=== PATIENT | female | born 1960 | race Caucasian/White ===

== ENCOUNTER 2024-08-16 03:18 | Day surgery (SDC) | payer MEDICARE ==
[~2024-08-16 03:18] MED LIST: Buspirone HCl30 MG PO; Estradiol0.5 MG PO; IRON150C PO; LORA1 PO; Lamictal200 MG PO; METPHE10 PO; PRIM50 PO; PROG100 PO; Pristiq100 MG PO; ZOLP10 PO
[2024-08-16] MEDS ORDERED: Lidocaine HCl 4% Cream 5 GM ONE (13:13)
== END 2024-08-16 23:00 | disposition home or self-care (01) ==
LOC: WOUND 03:18
DX: L97.419 Non-pressure chronic ulcer of right heel and midfoot with unspecified severity (principal); G62.9 Polyneuropathy, unspecified; E03.9 Hypothyroidism, unspecified; Z88.0 Allergy status to penicillin
CPT/HCPCS: A9270; G0463

== ENCOUNTER 2024-09-17 18:09 | Observation (INO) | payer MEDICARE ==
[~2024-09-17] VITALS: Ht 167.6 cm; Wt 144.0 kg
[2024-09-17 18:56] LABS: BASOPHILS ABSOLUTE AUTO 0.04 K/mm3 (0.00-0.23); BASOPHILS PERCENT AUTO 0 % (0-2); EOSINOPHILS ABSOLUTE AUTO 0.12 K/mm3 (0.00-0.68); EOSINOPHILS PERCENT AUTO 1 % (0-6); Hematocrit 45.4 % (33.0-51.0); Hemoglobin 15.3 g/dL (11.5-16.0); IMMATURE GRAN ABSOLUTE AUTO 0.02 K/mm3 (0.00-0.10); IMMATURE GRAN PERCENT AUTO 0 % (0-1); LYMPHOCYTES ABSOLUTE AUTO 1.98 K/mm3 (0.84-5.20); LYMPHOCYTES PERCENT AUTO 21 % (21-46); MONOCYTES ABSOLUTE AUTO 0.72 K/mm3 (0.16-1.47); MONOCYTES PERCENT AUTO 8 % (4-13); Mean Corpuscular HGB 29.3 pg (26.0-34.0); Mean Corpuscular HGB Conc 33.7 g/dL (31.5-36.5); Mean Corpuscular Volume 87 fL (80-100); Mean Platelet Volume 9.2 fL (9.1-12.4); NEUTROPHILS ABSOLUTE AUTO 6.36 K/mm3 (1.96-9.15); NEUTROPHILS PERCENT AUTO 69 % (41-73); Platelet Count 269 K/mm3 (150-400); RDW Coefficient Variation 12.7 % (11.7-14.2); RDW Standard Deviation 40.5 fL (35.1-46.3); Red Blood Cell Count 5.22 M/mm3 (3.80-5.20); White Blood Cell Count 9.24 K/mm3 (4.00-11.30)
[2024-09-17 18:59] LABS: Albumin, Blood 3.2 g/dL (3.4-5.0); Albumin/Globulin Ratio 0.8 (0.8-1.8); Bilirubin, Total 0.4 mg/dL (0.1-1.0); Bun/Creatinine Ratio 10.5 (12.0-20.0); Calcium, Blood 9.4 mg/dL (8.5-10.1); Creatinine, Blood 1.05 mg/dL (0.40-1.00); Globulin, Blood 3.9 g/dL (2.2-4.0); Potassium, Blood 4.6 mmol/L (3.5-5.5); Total Protein, Blood 7.1 g/dL (6.4-8.2)
[2024-09-17 21:30] LABS: Influenza A, PCR NEGATIVE (NEGATIVE); Influenza B, PCR NEGATIVE (NEGATIVE); Resp Syncytial Virus, PCR NEGATIVE (NEGATIVE); SARS-Cov-2 (COVID-19) PCR, MMC NEGATIVE (NEGATIVE)
[2024-09-17 22:18] LABS: Source, Urine Clean Catch
[2024-09-17 22:24] LABS: Appearance, Urine Hazy (Clear); Bilirubin, Urine Neg (Neg); Blood, Urine 1+ (Neg); Color, Urine Yellow (P-Yellow); Glucose Qualitative, Urine Neg (Neg); Ketones, Urine Neg (Neg); Leukocyte Esterase, Urine 3+ (Neg); Nitrite, Urine Neg (Neg); Protein, Urine 1+ (Neg); Urobilinogen, Urine NORM (Normal)
[2024-09-17 22:31] LABS: Bacteria Many /hpf; Mucus Light (0-Heavy); Red Blood Cells, Urine 0-2 /hpf (0-2); Squamous Epithelial Cells Rare /hpf (Few); Transitional Epithelial Cells Few /hpf (0-Rare); White Blood Cells, Urine TNTC /hpf (0-5)
[2024-09-17] MEDS ORDERED: CefTRIAXone Sodium 1,000 MG in NS 100 ML IV ONE (22:50)
[2024-09-18] MEDS ORDERED: HYDROmorphone HCl 2 MG Tab PO PRN (02:35)
[2024-09-18] MEDS ORDERED: Nitrofurantoin/Nitrofuran Mac 100 MG Cap PO SCH (10:00)
[2024-09-18] MEDS ORDERED: Cyclobenzaprine5 MG PO (10:04)
[2024-09-18] MEDS ORDERED: FAMO20 PO (10:05)
[2024-09-18] MEDS ORDERED: ALPRAZOLAM110 PO (10:05)
[2024-09-18] MEDS ORDERED: PREG200 PO (10:06)
[2024-09-18] MEDS ORDERED: Amphetamine Sal20 MG PO (10:06)
[2024-09-18] MEDS ORDERED: HYDMOR4 PO (10:06)
[2024-09-18] MEDS ORDERED: ATORVASTATIN CA20 MG PO (10:07)
[2024-09-18] MEDS ORDERED: Oxybutynin Chlo10 MG PO (10:08)
[2024-09-18] MEDS ORDERED: Prilosec Otc20 MG PO (10:08)
[2024-09-18] MEDS ORDERED: Hydroxyzine HCl25 MG (10:10)
[2024-09-18] MEDS ORDERED: MONT10T PO (10:10)
[2024-09-18] MEDS ORDERED: KETO15TC TOP (10:12)
[2024-09-18] MEDS ORDERED: ALDACTONE100 MG PO (10:13)
[2024-09-18] MEDS ORDERED: ZIPRASIDONE HCL PO (10:13)
[2024-09-18] MEDS ORDERED: Synthroid/Levo0.2 MG (10:13)
[2024-09-18] MEDS ORDERED: Cetirizine HCl10 MG PO (10:14)
[2024-09-18] MEDS ORDERED: Amphet Asp/Amphet/D-Amphet 15 MG CapCR PO SCH (10:40)
[2024-09-18] MEDS ORDERED: BusPIRone HCl 5 MG Tab PO SCH (10:40)
[2024-09-18] MEDS ORDERED: Spironolactone 50 MG Tab PO SCH (10:40)
[2024-09-18] MEDS ORDERED: Amphet Asp/Amphet/D-Amphet 10 MG CapCR PO SCH (11:12)
[2024-09-18] MEDS ORDERED: Cyclobenzaprine HCl 10 MG Tab PO SCH (14:00)
[2024-09-18] MEDS ORDERED: FLU VACC TS2024-25(6MOS UP)/PF 45 MCG/0.5 ML SYRINGE IM SCH (16:25)
[2024-09-18] MEDS ORDERED: Famotidine 20 MG Tab PO SCH (21:00)
[2024-09-18] MEDS ORDERED: Ziprasidone HCL 20 MG Cap PO SCH (21:00)
[2024-09-18] MEDS ORDERED: HyDROXyzine HCl 25 MG Tab PO PRN (21:00)
[2024-09-18] MEDS ORDERED: Montelukast Sodium 10 MG Tab PO SCH (21:00)
[2024-09-18] MEDS ORDERED: Primidone 50 MG Tab PO SCH (21:00)
[2024-09-18] MEDS ORDERED: Atorvastatin 10 MG Tab PO SCH (21:00)
[2024-09-18] MEDS ORDERED: Pregabalin 75 MG Cap PO SCH (21:00)
[2024-09-18] MEDS ORDERED: ALPRAZolam 1 MG Tab PO PRN (21:00)
[2024-09-18] MEDS ORDERED: CefTRIAXone Sodium 1,000 MG in NS 100 ML IV SCH (21:00)
[2024-09-18 22:09] VITALS: BP 113/91
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
[2024-09-19 04:31] VITALS: BP 117/72
[2024-09-19] MEDS ORDERED: Levothyroxine Sodium 0.1 MG Tab PO SCH (06:00)
[2024-09-19] MEDS ORDERED: Omeprazole 20 MG CapCR PO SCH (06:00)
--- NOTE | 2024-09-19 06:36 | NUR ---
PT HAS BEEN AWAKE ALL NIGHT ON HER PHONE.PT STATES THAT SHE TAKES XANAX AT NIGHT TO SLEEP.PT SAYS THAT SHE DID NOT ASK FOR THE MEDICINE BECAUSE SHE DIDNT THINK THAT IT WAS ORDERED.INFORMED PT THAT ITS ORDERED PRN.PT STATES THAT SHE WILL FOR THE MED TONIGHT.VSS,DENIES PAIN,DENIES NEEDS.CALL LIGHT AND PT'S ITEMS WITHIN REACH.WILL REPORT TO INCOMING NURSE
[2024-09-19 07:50] VITALS: BP 91/78
[2024-09-19 08:49] LABS: BASOPHILS ABSOLUTE AUTO 0.04 K/mm3 (0.00-0.23); BASOPHILS PERCENT AUTO 1 % (0-2); EOSINOPHILS ABSOLUTE AUTO 0.21 K/mm3 (0.00-0.68); EOSINOPHILS PERCENT AUTO 3 % (0-6); Hematocrit 42.7 % (33.0-51.0); Hemoglobin 14.4 g/dL (11.5-16.0); IMMATURE GRAN ABSOLUTE AUTO 0.02 K/mm3 (0.00-0.10); IMMATURE GRAN PERCENT AUTO 0 % (0-1); LYMPHOCYTES ABSOLUTE AUTO 3.28 K/mm3 (0.84-5.20); LYMPHOCYTES PERCENT AUTO 39 % (21-46); MONOCYTES PERCENT AUTO 8 % (4-13); Mean Corpuscular HGB Conc 33.7 g/dL (31.5-36.5); Mean Corpuscular Volume 86 fL (80-100); Mean Platelet Volume 9.2 fL (9.1-12.4); NEUTROPHILS ABSOLUTE AUTO 4.09 K/mm3 (1.96-9.15); NEUTROPHILS PERCENT AUTO 49 % (41-73); Platelet Count 267 K/mm3 (150-400); RDW Coefficient Variation 12.7 % (11.7-14.2); RDW Standard Deviation 39.8 fL (35.1-46.3); Red Blood Cell Count 4.96 M/mm3 (3.80-5.20); White Blood Cell Count 8.34 K/mm3 (4.00-11.30)
[2024-09-19] MEDS ORDERED: Pregabalin 50 MG Capsule PO SCH (09:00)
[2024-09-19] MEDS ORDERED: Venlafaxine HCl 75 MG CapCR PO SCH (09:00)
[2024-09-19] MEDS ORDERED: Loratadine 10 MG Tab PO SCH (09:00)
[2024-09-19] MEDS ORDERED: Ketoconazole 2% Cream 15 GM TOP SCH (09:00)
[2024-09-19] MEDS ORDERED: Enoxaparin 40 MG/0.4 ML SYR SC SCH (09:00)
[2024-09-19 09:12] LABS: Bun/Creatinine Ratio 11.8 (12.0-20.0); Creatinine, Blood 0.76 mg/dL (0.40-1.00); Potassium, Blood 3.8 mmol/L (3.5-5.5)
--- NOTE | 2024-09-19 14:56 | NUR ---
PHYSICIAN CONTACT CALLED DR WHITNEY REGARDING BLADDER SCAN OF 999+ AND PATIENT COMPLAINTS OF PAIN AND UNABLE TO URINATE. OKAYED FOR INDWELLING ESQUIVEL. ESQUIVEL PLACED UNDER STERILE PROCEDURE, DRAINING TO GRAVITY YELLOW URINE.
[2024-09-19 15:30] VITALS: BP 150/83
--- NOTE | 2024-09-19 17:24 | NUR ---
SHIFT SUMMARY PATIENT ABLE TO PARTICIPATE WITH PHYSICAL THERAPY THIS SHIFT. TOLERATED ESQUIVEL BEING PLACED WELL. A/OX4. WOUNDS TO FEET OPEN TO AIR, WHITE WOUND BEDS. MEPILEX TO LEFT KNEE CDI. ASSISTED WITH PERICARE SEVERAL TIMES THIS SHIFT. EATING WELL, TOLERATING IV ABX WELL. RECEIVING DILAUDED FOR PAIN CONTROL 5/10 AVERAGE RATING. ABLE TO MAKE NEEDS KNOWN. CALL LIGHT IN REACH, CARES ONGOING.
[2024-09-19] MEDS ORDERED: NS 250 ML IV PRN (20:00)
[2024-09-19 20:17] VITALS: BP 112/78
--- NOTE | 2024-09-20 04:38 | NUR ---
SHIFT SUMMARY: PT AOX4 AND CALLS APPROPRIATELY. PT COMPLAINED OF PAIN, DILAUDID PO GIVEN WITH EVENING MEDS. PT STATES THAT THEY TAKE THE DILAUDID WITH THEIR FLEXARIL AND XANAX AT HOME. PT ENDORSED NOT BEING ABLE TO SLEEP THE LAST COUPLE DAYS. WAS ABLE TO SLEEP FOR A FEW HOURS THIS NIGHT. WHILE DOING MYNOR CARE, PTS LIPS WERE DUSKY AND SATTING IN 90'S PT WAS AWAKE BUT DROWSY AND ABLE TO ANSWER QUESTIONS APPROPRIATELY. STATES SHE IS NORMALLY SUPPOSED TO WEAR CPAP AT HOME BUT DOESNT. PLACED ON 1L OF OXYGEN NC AND COLOR RETURNED AND SATS BACK TO 96. NO FURTHER COMPLAINTS. PT RESTING IN BED, BED IN LOWEST POSITION, CALL LIGHT IN REACH. CONTINUING CARE.
[2024-09-20 04:57] VITALS: BP 123/69
[2024-09-20 07:50] VITALS: BP 121/69
[2024-09-20] MEDS ORDERED: Lubiprostone 24 MCG Cap PO SCH (12:00)
[2024-09-20] MEDS ORDERED: Aspirin 81 MG Chew PO SCH (12:00)
--- NOTE | 2024-09-20 16:19 | NUR ---
NO CHANGES IN PT STATUS. PT HAD C/O [AIN THROUGH THE SHIFT. SEE EMAR FOR DETAILS ON NV MEDICATION GIVE PER MD ORDERS. PT HAS NO QUESTIONS OR CONCERNS AT THIS TIME.
[2024-09-20 17:05] VITALS: BP 111/63
[2024-09-20 19:48] VITALS: BP 135/67
[2024-09-20] MEDS ORDERED: buPROPion HCL 150 MG TAB.SR.12H PO SCH (21:00)
[2024-09-21 04:34] VITALS: BP 133/72
--- NOTE | 2024-09-21 04:58 | NUR ---
SHIFT SUMMARY: PT AOX4 COMPLAINED OF SOME PAIN MEDICATED PER EMR. TOLERATING PO MEDS WELL NO COMPLAINTS OF DISCOMFORT THROUGH THE NIGHT. WAS ABLE TO SLEEP WELL THROUGH MOST OF THE NIGHT. HAD A LOT OF OUTPUT VIA ESQUIVEL >2000ML. DRESSINGS ARE CLEAN DRY AND INTACT. PT VERY PLEASANT AND EXCITED TO WORKING TOWARDS GETTING BETTER. PT RESTING IN BED, BED IN LOWEST POSITION, CALL LIGHT IN REACH. CONTINUING CARE.
[2024-09-21 09:08] VITALS: BP 137/83
[2024-09-21 16:13] VITALS: BP 99/67
--- NOTE | 2024-09-21 17:23 | NUR ---
NO CHNGES I PT STATUS. PT HAD C/O PAIN SEE EMAR FOR DETAILS.
[2024-09-21 19:29] VITALS: BP 113/79
[2024-09-21] MEDS ORDERED: ALPRAZolam 0.5 MG Tab PO PRN (21:00)
[2024-09-22 03:59] VITALS: BP 99/60
--- NOTE | 2024-09-22 06:08 | NUR ---
SHIFT SUMMARY: PT AOX4 FLAT AFFECT BUT VERY PLEASANT. PT TOLERATING MEDICATION WELL AND WAS ABLE TO TRANSFER FROM CHAIR TO BED WITH 1PA/ SBA. ESQUIVEL HAD GOOD OUTPUT THROUGH THE NIGHT. PT WAS ABLE TO SLEEP PRETTY WELL THROUGH THE NIGHT WITH MINIMAL DISTURBANCES. NO ACUTE EVENTS OVERNIGHT. PT RESTING IN BED, BED IN LOWEST POSITION, CALL LIGHT IN REACH. CONTINUING CARE.
[2024-09-22 07:25] VITALS: BP 112/72
[2024-09-22] MEDS ORDERED: Psyllium 1 EA Pack PO SCH (11:35)
[2024-09-22] MEDS ORDERED: Polyethylene Glycol 3350 17 gm PO SCH (11:35)
[2024-09-22 15:43] VITALS: BP 106/71
--- NOTE | 2024-09-22 16:38 | NUR ---
SHIFT SUMMARY MS LAU DESCRIBES GENERAL PAIN LEVEL 6/10 WHICH SHE SAID IS ABOUT BASELINE. SHE SAID SHE HAS NOT HAD A BM X 1 WEEK. STARTED ON METAMUCIL AND MIRILAX PER VO DR PEREZ. DRINKING PO FLUIDS WELL AND SHE HAS AMBULATED IN THE HALLS WITH PHYSICAL THERAPY. ESQUIVEL CATHETER CLAMPED FOR 5 HOURS AND REMOVED AT 1545HRS. FAMILY AT BEDSIDE. AWAITING S.N.F. PLACEMENT. UP IN CHAIR FOR MUCH OF THE DAY, RESTING IN BED NOW, BED LOW, CALL LIGHT IN REACH.
[2024-09-22 19:37] VITALS: BP 113/67
[2024-09-22] MEDS ORDERED: Arginine/Glutamine/Calcium Hmb 1 Packet PO SCH (21:00)
[2024-09-23 04:25] VITALS: BP 99/64
--- NOTE | 2024-09-23 04:52 | NUR ---
SHIFT SUMMARY; PATIENT SLEPT IN LONG INTERVALS. GIVEN PRN XANAX. SHE DECLINED THE ATARAX, SAID IT DOES NOT WORK FOR HER. VSS. VOIDING WELL SINCE SIERRA STYLES. PLEASANT TO WORK WITH AND CALLS FOR HELP TO
[2024-09-23 07:04] VITALS: BP 113/56
[2024-09-23] MEDS ORDERED: Magnesium Hydroxide Conc 10 ML UDC PO ONE (11:55)
[2024-09-23] MEDS ORDERED: AMITIZA24 MC1 PO (13:22)
[2024-09-23] MEDS ORDERED: ASPI81CH PO (13:22)
[2024-09-23] MEDS ORDERED: JUVEN PACKET1 EAC3 PO (13:22)
[2024-09-23] MEDS ORDERED: NITR100CA PO (13:23)
[2024-09-23] MEDS ORDERED: MIRALAX1714 PO (13:24)
[2024-09-23] MEDS ORDERED: Primidone50 MG PO (13:25)
[2024-09-23] MEDS ORDERED: Budeprion Xl300 MG PO (13:32)
[2024-09-23] MEDS ORDERED: ALPR1 PO (13:34)
[2024-09-23] MEDS ORDERED: OMEP20ER PO (14:01)
--- NOTE | 2024-09-23 14:19 | NUR ---
DISCHARGE NOTE MS LAU WAS TRANSFERED TO [facility]. MEDICAL TRANSFER TOOK HER IN A WHEELCHAIR AT 1423HRS. REPORT CALLED TO ACCEPTING NURSE JENNY. MS LAU IS OX4, PAIN STABLE BETWEEN 6 AND 7/10 CONTROLLED ON MEDICATION REGIME. MS LAU HAS BEEN UP WALKING TO THE BATHROOM WITH GAITBELT/WALKER AND STAND BY ASSISTANCE. SHE HAS BEEN URINATING WELL AND PASSING FLATUS BUT NO BOWEL MOVEMENT FOR 8 DAYS PER PT REPORT. MEDICATED WITH BOWEL CARE REGIME. MS LAU DENIED ANY NEW CONCERNS OR QUESTIONS PRIOR TO TRANSFER.
[2024-09-24] MEDS ORDERED: Magnesium Hydroxide Conc 10 ML UDC PO PRN
== END 2024-09-23 14:25 ==
LOC: ER 18:09 → ERHOLD 18:10 → MEDS 18:10
PROVIDERS: Student in an Organized Health Care Education/Training Program; ADMIT Internal Medicine
DX: R53.1 Weakness (principal); W19.XXXA Unspecified fall, initial encounter; N39.0 Urinary tract infection, site not specified; B95.2 Enterococcus as the cause of diseases classified elsewhere; R33.9 Retention of urine, unspecified; E03.9 Hypothyroidism, unspecified; I89.0 Lymphedema, not elsewhere classified; K21.9 Gastro-esophageal reflux disease without esophagitis; F90.9 Attention-deficit hyperactivity disorder, unspecified type; F31.9 Bipolar disorder, unspecified; G25.0 Essential tremor; M79.7 Fibromyalgia; K59.03 Drug induced constipation; M17.0 Bilateral primary osteoarthritis of knee; L97.419 Non-pressure chronic ulcer of right heel and midfoot with unspecified severity; G50.0 Trigeminal neuralgia; Z79.890 Hormone replacement therapy; Z79.899 Other long term (current) drug therapy; E78.5 Hyperlipidemia, unspecified; Z88.0 Allergy status to penicillin; Z88.5 Allergy status to narcotic agent; Z88.8 Allergy status to other drugs, medicaments and biological substances; Z86.73 Personal history of transient ischemic attack (TIA), and cerebral infarction without residual deficits; Z90.49 Acquired absence of other specified parts of digestive tract
CPT/HCPCS: 0241U; 36415; 51701; 51798; 73620; 80048; 80053; 81001; 85025; 87077; 87086; 87186; 96365; 96366; 96372; 97110; 97116; 97161; 97166; 97530; 97535; 99285-25; A9270; G0378; J0696; J1650; J7050; P9612

== ENCOUNTER 2025-02-04 15:00 | Inpatient (IN) | payer MEDICARE ==
[~2025-02-04] VITALS: Ht 167.6 cm; Wt 137.8 kg
[~2025-02-04 15:00] MED LIST changes: +ALDACTONE100 MG PO; +ALPR1 PO; +ALPRAZOLAM110 PO; +AMITIZA24 MC1 PO; +ASPI81CH PO; +ATORVASTATIN CA20 MG PO; +Amphetamine Sal20 MG PO; +Budeprion Xl300 MG PO; +Cetirizine HCl10 MG PO; +Cyclobenzaprine5 MG PO; +FAMO20 PO; +HYDMOR4 PO; +Hydroxyzine HCl25 MG; +JUVEN PACKET1 EAC3 PO; +KETO15TC TOP; +MIRALAX1714 PO; +MONT10T PO; +NITR100CA PO; +OMEP20ER PO; +Oxybutynin Chlo10 MG PO; +PREG300 PO; +Prilosec Otc20 MG PO; +Primidone50 MG PO; +Synthroid/Levo0.2 MG PO; +ZIPRASIDONE HCL PO
[2025-02-04 15:47] LABS: BASOPHILS ABSOLUTE AUTO 0.05 K/mm3 (0.00-0.23); BASOPHILS PERCENT AUTO 1 % (0-2); EOSINOPHILS ABSOLUTE AUTO 0.11 K/mm3 (0.00-0.68); EOSINOPHILS PERCENT AUTO 1 % (0-6); Hematocrit 47.4 % (33.0-51.0); Hemoglobin 16.2 g/dL (11.5-16.0); IMMATURE GRAN ABSOLUTE AUTO 0.04 K/mm3 (0.00-0.10); IMMATURE GRAN PERCENT AUTO 0 % (0-1); LYMPHOCYTES PERCENT AUTO 33 % (21-46); MONOCYTES ABSOLUTE AUTO 0.69 K/mm3 (0.16-1.47); MONOCYTES PERCENT AUTO 6 % (4-13); Mean Corpuscular HGB 29.8 pg (26.0-34.0); Mean Corpuscular HGB Conc 34.2 g/dL (31.5-36.5); Mean Corpuscular Volume 87 fL (80-100); Mean Platelet Volume 8.7 fL (9.1-12.4); NEUTROPHILS ABSOLUTE AUTO 6.32 K/mm3 (1.96-9.15); NEUTROPHILS PERCENT AUTO 58 % (41-73); Platelet Count 331 K/mm3 (150-400); RDW Coefficient Variation 12.5 % (11.7-14.2); RDW Standard Deviation 39.7 fL (35.1-46.3); Red Blood Cell Count 5.43 M/mm3 (3.80-5.20); White Blood Cell Count 10.81 K/mm3 (4.00-11.30)
[2025-02-04 16:13] LABS: Albumin, Blood 3.7 g/dL (3.4-5.0); Albumin/Globulin Ratio 0.9 (0.8-1.8); Bilirubin, Total 0.8 mg/dL (0.1-1.0); Bun/Creatinine Ratio 13.9 (12.0-20.0); Calcium, Blood 9.7 mg/dL (8.5-10.1); Creatinine, Blood 0.94 mg/dL (0.40-1.00); Globulin, Blood 3.9 g/dL (2.2-4.0); Potassium, Blood 4.5 mmol/L (3.5-5.5); Total Protein, Blood 7.6 g/dL (6.4-8.2)
[2025-02-04] MEDS ORDERED: Vancomycin HCL 1,750 MG in NS 500 ML IV ONE (18:55)
[2025-02-04] MEDS ORDERED: Ondansetron 4 MG TAB PO PRN (20:05)
[2025-02-04] MEDS ORDERED: HYDROmorphone HCl 4 MG Tab PO PRN (20:10)
[2025-02-04] MEDS ORDERED: Montelukast Sodium 10 MG Tab PO SCH (21:00)
[2025-02-04] MEDS ORDERED: Ziprasidone HCL 20 MG Cap PO SCH (21:00)
[2025-02-04] MEDS ORDERED: ALPRAZolam 1 MG Tab PO SCH (21:00)
[2025-02-04] MEDS ORDERED: Cyclobenzaprine HCl 10 MG Tab PO SCH (21:00)
[2025-02-04] MEDS ORDERED: Atorvastatin 10 MG Tab PO SCH (21:00)
[2025-02-04] MEDS ORDERED: Lactobacil 2-S.Thermo-Bifido 1 1 Cap PO SCH (21:00)
[2025-02-04] MEDS ORDERED: BusPIRone HCl 10 MG Tab PO SCH (21:00)
[2025-02-04] MEDS ORDERED: Pregabalin 50 MG Capsule PO SCH (21:00)
[2025-02-04] MEDS ORDERED: NS 1,000 ML IV SCH (21:00)
[2025-02-04] MEDS ORDERED: buPROPion HCL 150 MG TAB.SR.12H PO SCH (21:00)
[2025-02-04] MEDS ORDERED: Famotidine 20 MG Tab PO SCH (21:00)
[2025-02-04] MEDS ORDERED: Primidone 50 MG Tab PO SCH (21:00)
[2025-02-04] MEDS ORDERED: ALPRAZolam 1 MG Tab PO PRN (21:20)
[2025-02-04] MEDS ORDERED: Pregabalin 75 MG Cap PO SCH (22:00)
[2025-02-04 22:29] VITALS: BP 126/81
[2025-02-04] MEDS ORDERED: NS 1,000 ML IV ONE (23:26)
[2025-02-05] MEDS ORDERED: ALPRAZolam 1 MG Tab PO PRN (01:15)
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
[2025-02-05 04:39] VITALS: BP 101/84
[2025-02-05] MEDS ORDERED: Levothyroxine Sodium 0.1 MG Tab PO SCH (06:00)
[2025-02-05] MEDS ORDERED: Omeprazole 20 MG CapCR PO SCH (06:00)
[2025-02-05] MEDS ORDERED: Vancomycin HCL 1,250 MG in NS 250 ML IV SCH (06:00)
[2025-02-05 06:22] LABS: BASOPHILS ABSOLUTE AUTO 0.04 K/mm3 (0.00-0.23); BASOPHILS PERCENT AUTO 0 % (0-2); EOSINOPHILS ABSOLUTE AUTO 0.17 K/mm3 (0.00-0.68); EOSINOPHILS PERCENT AUTO 2 % (0-6); Hemoglobin 13.8 g/dL (11.5-16.0); IMMATURE GRAN ABSOLUTE AUTO 0.03 K/mm3 (0.00-0.10); IMMATURE GRAN PERCENT AUTO 0 % (0-1); LYMPHOCYTES ABSOLUTE AUTO 3.53 K/mm3 (0.84-5.20); LYMPHOCYTES PERCENT AUTO 36 % (21-46); MONOCYTES ABSOLUTE AUTO 1.42 K/mm3 (0.16-1.47); MONOCYTES PERCENT AUTO 14 % (4-13); Mean Corpuscular HGB 29.2 pg (26.0-34.0); Mean Corpuscular HGB Conc 32.1 g/dL (31.5-36.5); Mean Corpuscular Volume 91 fL (80-100); NEUTROPHILS ABSOLUTE AUTO 4.66 K/mm3 (1.96-9.15); NEUTROPHILS PERCENT AUTO 47 % (41-73); Platelet Count 237 K/mm3 (150-400); RDW Coefficient Variation 12.5 % (11.7-14.2); RDW Standard Deviation 41.7 fL (35.1-46.3); Red Blood Cell Count 4.72 M/mm3 (3.80-5.20); White Blood Cell Count 9.85 K/mm3 (4.00-11.30)
[2025-02-05 06:45] LABS: Bun/Creatinine Ratio 13.5 (12.0-20.0); Calcium, Blood 8.8 mg/dL (8.5-10.1); Creatinine, Blood 0.89 mg/dL (0.40-1.00); Potassium, Blood 3.8 mmol/L (3.5-5.5)
[2025-02-05 07:41] VITALS: BP 106/71
[2025-02-05] MEDS ORDERED: Polyethylene Glycol 3350 17 gm PO SCH (09:00)
[2025-02-05] MEDS ORDERED: Ziprasidone HCL 20 MG Cap PO SCH (09:00)
[2025-02-05] MEDS ORDERED: Aspirin 81 MG Chew PO SCH (09:00)
[2025-02-05] MEDS ORDERED: Spironolactone 50 MG Tab PO SCH (09:00)
[2025-02-05] MEDS ORDERED: Enoxaparin 40 MG/0.4 ML SYR SC SCH (09:00)
[2025-02-05] MEDS ORDERED: Amphet Asp/Amphet/D-Amphet 5 MG Tab PO SCH ×2 (09:00→12:00)
[2025-02-05] MEDS ORDERED: Loratadine 10 MG Tab PO SCH (09:00)
[2025-02-05] MEDS ORDERED: Zolpidem Tartrate 5 MG Tab PO PRN (10:55)
[2025-02-05] MEDS ORDERED: NS 250 ML IV PRN (14:20)
[2025-02-05 15:25] VITALS: BP 108/75
--- NOTE | 2025-02-05 18:08 | NUR ---
SHIFT SUMMARY PT AOX4, COOPERATIVE, ABLE TO MAKE NEEDS KNOWN. PT IS SBA USING CANE TO BATHROOM TO VOID. WOUND CARE ORDERS PLACED OF PT FOOT. PODIATRY CONSULTED AND VISITED PT. PT INFORMED THIS RN NO PROCEDURE TO TAKE PLACE TOMORROW, GONNA BE HANDLED WITH OUTPATIENT IV ANTIBIOTICS AND CONSISTANT WOUND CARE. BED IN LOWST POSITION, CALL LIGHT WITHIN REACH.
[2025-02-05 19:39] VITALS: BP 106/65
[2025-02-06 02:13] VITALS: BP 112/74
--- NOTE | 2025-02-06 03:29 | NUR ---
PT WAS UP TO CHAIR DURING THE START OF SHIFT WITH 1 ASSIST AND CANE. WOUND CARE WAS COMPLETED DURING THIS SHIFT PER THE DOCTORDS ORDERS-XEROFORM, EXUDRY, KERLIX AND LEOBARDO WRAP.PT GIVEN DILUADID FOR HER COMPLAINT OF PAIN. PATIENT STATES SHE WAS UNABLE TO VOID. RN OBTAINED ORDER FOR BLADDER SCAN AND STRAIGHT CATH ONCE FOR RETENTION >300 mL. PATIENT WAS RETAINING 1442 mL AND WAS STRAIGHT CATH. PT STATED SHE IS FEELING MUCH BETTER. PT ABLE TO DEMOSTRATE THE PROPER USE OF CALL LIGHT AND ORIENTED TO OWN ABILITY. BED IS IN LOW POSITION AND WHEEL ARE LOCKED. CALL LIGHT IS WITHIN PATIENTS REACH.
[2025-02-06 04:28] VITALS: BP 113/75
[2025-02-06 05:47] LABS: BASOPHILS ABSOLUTE AUTO 0.03 K/mm3 (0.00-0.23); BASOPHILS PERCENT AUTO 0 % (0-2); EOSINOPHILS ABSOLUTE AUTO 0.09 K/mm3 (0.00-0.68); EOSINOPHILS PERCENT AUTO 1 % (0-6); Hematocrit 39.6 % (33.0-51.0); Hemoglobin 13.3 g/dL (11.5-16.0); IMMATURE GRAN ABSOLUTE AUTO 0.02 K/mm3 (0.00-0.10); IMMATURE GRAN PERCENT AUTO 0 % (0-1); LYMPHOCYTES ABSOLUTE AUTO 1.79 K/mm3 (0.84-5.20); LYMPHOCYTES PERCENT AUTO 20 % (21-46); MONOCYTES ABSOLUTE AUTO 0.64 K/mm3 (0.16-1.47); MONOCYTES PERCENT AUTO 7 % (4-13); Mean Corpuscular HGB Conc 33.6 g/dL (31.5-36.5); Mean Corpuscular Volume 89 fL (80-100); Mean Platelet Volume 9.4 fL (9.1-12.4); NEUTROPHILS ABSOLUTE AUTO 6.25 K/mm3 (1.96-9.15); NEUTROPHILS PERCENT AUTO 71 % (41-73); Platelet Count 238 K/mm3 (150-400); RDW Coefficient Variation 12.4 % (11.7-14.2); RDW Standard Deviation 40.7 fL (35.1-46.3); Red Blood Cell Count 4.44 M/mm3 (3.80-5.20); White Blood Cell Count 8.82 K/mm3 (4.00-11.30)
[2025-02-06 06:10] LABS: Anion Gap 3 mmol/L (3-11); Blood Urea Nitrogen 10 mg/dL (8-24); Bun/Creatinine Ratio 11.7 (12.0-20.0); CO2, Blood 28 mmol/L (21-32); Calcium, Blood 8.9 mg/dL (8.5-10.1); Chloride, Blood 107 mmol/L (98-108); Creatinine, Blood 0.86 mg/dL (0.40-1.00); Glomerular Filtration Rate 76 (60-); Glucose, Blood 132 mg/dL (70-99); Magnesium, Blood 2.1 mg/dL (1.6-2.4); Potassium, Blood 4.4 mmol/L (3.5-5.5); Sodium, Blood 134 mmol/L (136-145); Vancomycin, Trough 19.3 ug/mL (5.0-10.0)
[2025-02-06 07:27] VITALS: BP 110/77
[2025-02-06] MEDS ORDERED: Vancomycin HCL 750 MG in NS 250 ML IV ONE (08:45)
[2025-02-06 16:38] LABS: Source, Urine Clean Catch
[2025-02-06 16:44] LABS: Appearance, Urine Clear (Clear); Bilirubin, Urine Neg (Neg); Blood, Urine Neg (Neg); Glucose Qualitative, Urine Neg (Neg); Ketones, Urine Neg (Neg); Leukocyte Esterase, Urine Neg (Neg); Nitrite, Urine Neg (Neg); Protein, Urine Neg (Neg); Urobilinogen, Urine NORM (Normal)
--- NOTE | 2025-02-06 16:58 | NUR ---
SHIFT SUMMARY PT AOX4, COOPERATIVE, ABLE TO MAKE NEEDS KNOWN. PT IS 1 PERSON ASSIST TO COMMODE TO VOID. TOLERATING IV AND PO MEDICATIONS. PT IS RETAINING URINE A BIT, LAST URINE OUTPUT WAS OVER 1000CC, PT REPORTS HAVING TO CONCENTRATE AND STRAIN TO URINATE. PT TO WORK WITH PT. AWAITING UA RESULTS. DONT KNOWN WHEN DC WILL BE. FATHER (CAREGIVER) IS CURRENTLY AT THE COAST AND WILL BE UNTIL FRIDAY, PT DOES NOT HAVE RIDE HOME. CASE MANAGMENT MIGHT BE ABLE TO SET UP [facility]AXI RIDE HOME IF MD APPROVES DC TOMORROW. BED IN LOWEST POSITION, CALL LIGHT WITHIN REACH.
[2025-02-06 17:06] LABS: Color, Urine Pale Yellow (P-Yellow)
[2025-02-06 17:44] VITALS: BP 113/72
[2025-02-06 19:55] VITALS: BP 109/48
[2025-02-06] MEDS ORDERED: Miconazole Nitrate 2% 85 GM PWD TOP SCH (21:00)
[2025-02-06] MEDS ORDERED: Miconazole Nitrate 2% 43 GM PWD TOP SCH (21:00)
[2025-02-07 04:09] VITALS: BP 120/58
--- NOTE | 2025-02-07 04:22 | NUR ---
A&O X4,RECVD SITTING ON CHAIR RECLINER. VSS. WITH BOTH FEET NICELY DRESSED AND ELEVATED. WITH ONGOING INFECTION TX BUT ASYMPTOMATIC. STILL W/ STRAINING ON URINATION CONCERNS BUT ABLE TO VOID GOOD AMOUNT AT MIDNIGHT. ABLE TO TRANSFER SAFELY AND REPOSITION TO BED. BUT LEFT FOOT DRESSING GOT REMOVED ACCIDENTALLY ON TRANSFER. REDRESSED BOTH WOUND FEET ASEPTICALLY AT 1230AM. REQ FOR SLEEP PILL AND ABLE TO REST WELL AT NIGHT.
[2025-02-07 07:39] VITALS: BP 121/71
[2025-02-07] MEDS ORDERED: Vancomycin HCL 2,000 MG in NS 500 ML IV SCH (09:00)
[2025-02-07 09:52] LABS: Hematocrit 41.8 % (33.0-51.0); Hemoglobin 14.1 g/dL (11.5-16.0); Mean Corpuscular HGB 30.4 pg (26.0-34.0); Mean Corpuscular HGB Conc 33.7 g/dL (31.5-36.5); Mean Corpuscular Volume 90 fL (80-100); Mean Platelet Volume 9.2 fL (9.1-12.4); Platelet Count 257 K/mm3 (150-400); RDW Coefficient Variation 12.6 % (11.7-14.2); RDW Standard Deviation 41.2 fL (35.1-46.3); Red Blood Cell Count 4.64 M/mm3 (3.80-5.20)
[2025-02-07 10:06] LABS: Albumin, Blood 3.2 g/dL (3.4-5.0); Anion Gap 6 mmol/L (3-11); Blood Urea Nitrogen 10 mg/dL (8-24); Bun/Creatinine Ratio 11.7 (12.0-20.0); CO2, Blood 26 mmol/L (21-32); Calcium, Blood 9.1 mg/dL (8.5-10.1); Chloride, Blood 107 mmol/L (98-108); Creatinine, Blood 0.86 mg/dL (0.40-1.00); Glomerular Filtration Rate 76 (60-); Glucose, Blood 125 mg/dL (70-99); Magnesium, Blood 2.1 mg/dL (1.6-2.4); Phosphorus, Blood 2.9 mg/dL (2.5-4.9); Sodium, Blood 135 mmol/L (136-145)
[2025-02-07 15:52] VITALS: BP 107/72
--- NOTE | 2025-02-07 17:04 | NUR ---
SHIFT SUMMARY PT AOX4, COOPERATIVE, ABLE TO MAKE NEEDS KNOWN. PT IS 1 PERSON ASSIST TO RECLINER USING TOE TOUGH ON LEFT FOOT AND HEEL TOUCH ON RIGHT FOOT. TOLERATING IV AND PO MEDICATION. NEEDS PICC LINE FOR SNF ANTIBX, CHARGE ACCOUNTS AUDIT CLERK AWARE. PLACED ORDER FOR FLOMAX FOR EASE OF URINATING, SHOULD BE REFLECTED ON EMAR. BED IN LOWEST POSITION, CALL LIGHT WITHIN REACH.
[2025-02-07] MEDS ORDERED: Acetaminophen 325 MG TABLET PO PRN (17:15)
--- NOTE | 2025-02-07 20:16 | NUR ---
T- ORDER RECEIVED FROM THE ON-CALL HOSPITALIST DR. PARKS: TORADOL IV Q6 PRN. PER PT REPORT, HAS TAKEN THIS MEDICATION PRIOR, AND HAVEN'T HAD ANY ADVERSE REACTION TO IT. ENTERED TO [employer], SEE EMAR.
[2025-02-07] MEDS ORDERED: Ketorolac Tromethamine 30mg Vial IV PRN (20:20)
[2025-02-07 20:47] VITALS: BP 107/68
--- NOTE | 2025-02-08 02:56 | NUR ---
SHIFT SUMMARY NO ACUTE EVENTS DURING THIS SHIFT. PT ABLE TO VOID >1300MLS AT BS WITH 1-PERSON ASSIST AND FWW. PT REFUSED DRESSING CHANGES AT HS TO FEET. RIGHT FOOT LEOBARDO WRAP C/D/I, LEFT FOOT MEPILEX C/D/I. NEW ORDER OF TORADOL 30MG IV Q6PRN RECEIVED FROM THE ON-CALL HOSPITALIST. MEDICATED FOR C/O 05/11 MIGRANE AT HS. PT REPORTS EFFECTIVE 0. PT IS ON RA, O2 SAT'S>96%. HS PRN XANAX 1MG ADMINISTERED ORDERED. NO BM DURING THIS SHIFT; LAST BM REPORTED>3-4 DAYS AGO. PER EMAR, PT RESTARTING HOME MEDICATION MOVANTIC THIS MORNING. PER [employer] ORDERS, PICC IS ORDERED, FOR PLAN TO CONTINUE EIGHT WEEKS OF IV ABX'S. BED AT THE LOWEST POSITION, CALL LIGHT W/I REACH. PT IS ABLE TO MAKE HER NEEDS KNOWN, IS PLEASANT AND COOPERATIVE WITH CARE, A/OX4.
[2025-02-08 04:48] VITALS: BP 95/62
--- NOTE | 2025-02-08 06:17 | NUR ---
PER PT REPORT, MOVANTIC PO IS TAKEN TO AN EMPTY STOMACH QAM. PER EMAR THIS MEDICATION IS A ONE-TIME DOSE AND WAS SCHEDULED AT 0900. THIS CITY MANAGER CALLED PHARMACIST NORMAN, HE OK'D THAT THIS MED BE GIVEN AT THIS TIME (0618) WITH OMEPRAZOLE AND SYNTHROID PO. WAS ADMINISTERED ABOVE. WILL REPORT TO INCOMING DAY SHIFT NURSE THAT THE PT TAKES THIS MEDICATION EVERY MORNING. THIS WAS A ONE TIME DOSE.
[2025-02-08 07:31] VITALS: BP 118/70
[2025-02-08 08:43] LABS: Vancomycin, Trough 13.3 ug/mL (5.0-10.0)
[2025-02-08] MEDS ORDERED: Tamsulosin HCl 0.4 MG Cap PO SCH (09:00)
[2025-02-08] MEDS ORDERED: Psyllium 1 EA Pack PO SCH (09:00)
[2025-02-08] MEDS ORDERED: Naloxegol Oxalate 12.5 MG Tab PO SCH (09:00)
[2025-02-08] MEDS ORDERED: Vancomycin1 GM/2501 IV (14:13)
[2025-02-08] MEDS ORDERED: TAMS.4ER PO (14:13)
[2025-02-08] MEDS ORDERED: PSYLLIUM FIBER0.4 GM PO (14:13)
[2025-02-08] MEDS ORDERED: ZOLP5 PO (14:14)
[2025-02-08] MEDS ORDERED: VISBIOME 112.51 EACH PO (14:14)
--- NOTE | 2025-02-08 15:34 | NUR ---
DISCHARGE SUMMARY PT BEING DISCHARGED TO THE MEDICAL CENTER. WHEELCHAIR TRANSPORT PICKED UP WHILE I WAS ON LUNCH BREAK. CHARGE NURSE COMPLETED MED REC AND BREAK NURSE GATHERED BELONGING IN ROOM AND SENT WITH PATIENT. PICC LINE WAS PLACED THIS AM BY ERICK CHARGE NURSE FOR COURSE OF ANTIBIOTICS. WOUND CARE COMPLETED PER ORDERS TO RIGHT FOOT AND LEFT HEEL PRIOR TO DC. CASE MANAGEMENT PLACED HARD SCRIPTS IN [place] TO SEND TO SNF WITH PATIENT. NO NEW CONCERNS OR QUESTIONS FROM PATIENT PRIOR TO DC. TO FOLLEY UP WITH DR. ROBIN WITH PODIATRY WITHIN 2-4 WEEKS.
== END 2025-02-08 14:56 | DRG 540 ==
LOC: ER 15:00 → MEDS 15:01
PROVIDERS: Hospitalist; Physician Assistant; ADMIT Hospitalist
PROC: 02HV33Z Insertion of Infusion Device into Superior Vena Cava, Percutaneous Approach (ICD-10-PCS; principal; 2025-02-07)
DX: M86.8X7 Other osteomyelitis, ankle and foot (principal); Z68.42 Body mass index [BMI] 45.0-49.9, adult; E03.9 Hypothyroidism, unspecified; F31.9 Bipolar disorder, unspecified; M19.90 Unspecified osteoarthritis, unspecified site; M54.50 Low back pain, unspecified; G89.29 Other chronic pain; K21.9 Gastro-esophageal reflux disease without esophagitis; F90.9 Attention-deficit hyperactivity disorder, unspecified type; E78.5 Hyperlipidemia, unspecified; G62.9 Polyneuropathy, unspecified; M79.7 Fibromyalgia; E66.01 Morbid (severe) obesity due to excess calories; L89.622 Pressure ulcer of left heel, stage 2; F41.1 Generalized anxiety disorder; Z79.891 Long term (current) use of opiate analgesic; Z79.899 Other long term (current) drug therapy; Z79.82 Long term (current) use of aspirin; Z88.0 Allergy status to penicillin; Z88.5 Allergy status to narcotic agent; Z88.8 Allergy status to other drugs, medicaments and biological substances; Z79.890 Hormone replacement therapy; Z90.49 Acquired absence of other specified parts of digestive tract; Z98.890 Other specified postprocedural states
CPT/HCPCS: 36415; 51701; 73630; 80048; 80053; 80069; 80202; 81003; 83735; 85025; 85027; 85651; 86140; 96365; 96366; 96372; 96376; 97162; 97165; 97530; 97535; 99285-25; A9270; G0378; J1650; J1885; J3370; J7030; J7040; J7050

== ENCOUNTER 2025-02-28 08:00 | Day surgery (SDC) | payer MEDICARE ==
[~2025-02-28 08:00] MED LIST changes: +PSYLLIUM FIBER0.4 GM PO; +TAMS.4ER PO; +VISBIOME 112.51 EACH PO; +Vancomycin1 GM/2501 IV; +ZOLP5 PO
[2025-02-28] MEDS ORDERED: Lidocaine HCl 4% Cream 5 GM ONE (13:00)
== END 2025-02-28 23:00 | disposition home or self-care (01) ==
LOC: WOUND 08:00
DX: L89.623 Pressure ulcer of left heel, stage 3 (principal); L89.893 Pressure ulcer of other site, stage 3; I73.9 Peripheral vascular disease, unspecified; E03.9 Hypothyroidism, unspecified
CPT/HCPCS: A9270; G0463

== ENCOUNTER 2025-03-07 04:50 | Day surgery (SDC) | payer MEDICARE ==
[2025-03-07] MEDS ORDERED: Lidocaine HCl 4% Cream 5 GM ONE (13:04)
== END 2025-03-07 23:00 | disposition home or self-care (01) ==
LOC: WOUND 04:50
DX: L89.623 Pressure ulcer of left heel, stage 3 (principal); L89.893 Pressure ulcer of other site, stage 3; I73.9 Peripheral vascular disease, unspecified
CPT/HCPCS: A9270; G0463

== ENCOUNTER 2025-03-21 01:05 | Day surgery (SDC) | payer MEDICARE ==
[2025-03-21] MEDS ORDERED: Lidocaine HCl 4% Cream 5 GM ONE (12:55)
== END 2025-03-21 23:00 | disposition home or self-care (01) ==
LOC: WOUND 01:05
DX: L89.623 Pressure ulcer of left heel, stage 3 (principal); I73.9 Peripheral vascular disease, unspecified
CPT/HCPCS: A9270; G0463

== ENCOUNTER 2025-04-11 00:42 | Day surgery (SDC) | payer MEDICARE | END 2025-04-11 23:00 | disposition home or self-care (01) | LOC: WOUND 00:42 | DX: L89.623 Pressure ulcer of left heel, stage 3 (principal); I73.9 Peripheral vascular disease, unspecified; M86.171 Other acute osteomyelitis, right ankle and foot; G62.9 Polyneuropathy, unspecified; E03.9 Hypothyroidism, unspecified | CPT/HCPCS: G0463 ==

== ENCOUNTER 2025-04-25 00:30 | Day surgery (SDC) | payer MEDICARE | END 2025-04-25 23:36 | disposition home or self-care (01) | LOC: WOUND 00:30 | DX: L89.623 Pressure ulcer of left heel, stage 3 (principal); M86.671 Other chronic osteomyelitis, right ankle and foot; I73.9 Peripheral vascular disease, unspecified; G62.9 Polyneuropathy, unspecified; E03.9 Hypothyroidism, unspecified | CPT/HCPCS: G0463 ==

== ENCOUNTER → 2025-04-26 | Outpatient (CLI) | payer MEDICARE ==
[2025-04-26 12:14] LABS: Vancomycin, Trough 13.5 ug/mL (5.0-10.0)
== END ==
LOC: LAB 11:39 → LAB SHORT 11:39
PROVIDERS: Nurse Practitioner Family
DX: M86.171 Other acute osteomyelitis, right ankle and foot (principal)
CPT/HCPCS: 80202

== ENCOUNTER 2025-05-09 01:01 | Day surgery (SDC) | payer MEDICARE | END 2025-05-09 23:00 | disposition home or self-care (01) | LOC: HBO 01:01 | DX: L89.623 Pressure ulcer of left heel, stage 3 (principal); S91.301D Unspecified open wound, right foot, subsequent encounter; X58.XXXD Exposure to other specified factors, subsequent encounter; M86.671 Other chronic osteomyelitis, right ankle and foot; I73.9 Peripheral vascular disease, unspecified; G62.9 Polyneuropathy, unspecified; E03.9 Hypothyroidism, unspecified | CPT/HCPCS: A6213; G0463 ==

== ENCOUNTER 2025-05-09 01:18 | Day surgery (SDC) | payer MEDICARE | END 2025-05-09 23:00 | disposition home or self-care (01) | LOC: WOUND 01:18 | DX: L89.623 Pressure ulcer of left heel, stage 3 (principal); I73.9 Peripheral vascular disease, unspecified; M86.671 Other chronic osteomyelitis, right ankle and foot; G62.9 Polyneuropathy, unspecified; E03.9 Hypothyroidism, unspecified | CPT/HCPCS: A6213; G0463 ==

== ENCOUNTER 2025-05-11 01:47 | Day surgery (SDC) | payer MEDICARE | END 2025-05-11 23:00 | disposition home or self-care (01) | LOC: HBO 01:47 | DX: M86.671 Other chronic osteomyelitis, right ankle and foot (principal); S91.301D Unspecified open wound, right foot, subsequent encounter; I73.9 Peripheral vascular disease, unspecified | CPT/HCPCS: G0277 ==

== ENCOUNTER 2025-05-16 02:42 | Day surgery (SDC) | payer MEDICARE ==
[2025-05-16] MEDS ORDERED: Lidocaine HCl 4% Cream 5 GM ONE (10:32)
== END 2025-05-16 23:00 | disposition home or self-care (01) ==
LOC: WOUND 02:42
DX: L89.623 Pressure ulcer of left heel, stage 3 (principal); G62.9 Polyneuropathy, unspecified; I73.9 Peripheral vascular disease, unspecified; M86.671 Other chronic osteomyelitis, right ankle and foot; E03.9 Hypothyroidism, unspecified
CPT/HCPCS: A9270

== ENCOUNTER 2025-05-16 02:51 | Day surgery (SDC) | payer MEDICARE | END 2025-05-16 23:00 | disposition home or self-care (01) | LOC: HBO 02:51 | DX: L89.623 Pressure ulcer of left heel, stage 3 (principal); S91.301D Unspecified open wound, right foot, subsequent encounter; M86.671 Other chronic osteomyelitis, right ankle and foot; I73.9 Peripheral vascular disease, unspecified; G62.9 Polyneuropathy, unspecified; E03.9 Hypothyroidism, unspecified | CPT/HCPCS: A9270; G0277 ==

== ENCOUNTER 2025-05-19 00:12 | Day surgery (SDC) | payer MEDICARE | END 2025-05-19 23:00 | disposition home or self-care (01) | LOC: HBO 00:12 | DX: L89.623 Pressure ulcer of left heel, stage 3 (principal); S91.301A Unspecified open wound, right foot, initial encounter; M86.671 Other chronic osteomyelitis, right ankle and foot; I73.9 Peripheral vascular disease, unspecified | CPT/HCPCS: G0277 ==

== ENCOUNTER 2025-05-24 02:13 | Day surgery (SDC) | payer MEDICARE | END 2025-05-24 23:00 | disposition home or self-care (01) | LOC: HBO 02:13 | DX: L89.623 Pressure ulcer of left heel, stage 3 (principal); S91.301D Unspecified open wound, right foot, subsequent encounter; M86.671 Other chronic osteomyelitis, right ankle and foot; I73.9 Peripheral vascular disease, unspecified | CPT/HCPCS: G0277 ==

== ENCOUNTER 2025-05-26 02:22 | Day surgery (SDC) | payer MEDICARE | END 2025-05-26 23:00 | disposition home or self-care (01) | LOC: HBO 02:22 | DX: M86.671 Other chronic osteomyelitis, right ankle and foot (principal); I73.9 Peripheral vascular disease, unspecified | CPT/HCPCS: G0277 ==

== ENCOUNTER 2025-06-03 10:42 | Day surgery (SDC) | payer MEDICARE ==
[~2025-06-03 10:42] MED LIST changes: +Lidocaine HCl 4% Cream 5 GM ONE
== END 2025-06-03 23:00 | disposition home or self-care (01) ==
LOC: WOUND 10:42
DX: L89.623 Pressure ulcer of left heel, stage 3 (principal); I73.9 Peripheral vascular disease, unspecified; M86.671 Other chronic osteomyelitis, right ankle and foot; E03.9 Hypothyroidism, unspecified; G62.9 Polyneuropathy, unspecified
CPT/HCPCS: A6214; A9270; G0463

== ENCOUNTER 2025-06-07 00:31 | Day surgery (SDC) | payer MEDICARE ==
[~2025-06-07 00:31] MED LIST changes: -Lidocaine HCl 4% Cream 5 GM ONE
== END 2025-06-07 23:00 | disposition home or self-care (01) ==
LOC: HBO 00:31
DX: L89.623 Pressure ulcer of left heel, stage 3 (principal); S91.301D Unspecified open wound, right foot, subsequent encounter; M86.671 Other chronic osteomyelitis, right ankle and foot; I73.9 Peripheral vascular disease, unspecified
CPT/HCPCS: G0277

== ENCOUNTER 2025-06-14 01:42 | Day surgery (SDC) | payer MEDICARE | END 2025-06-14 23:00 | disposition home or self-care (01) | LOC: HBO 01:42 | DX: M86.671 Other chronic osteomyelitis, right ankle and foot (principal); I73.9 Peripheral vascular disease, unspecified | CPT/HCPCS: G0277 ==

== ENCOUNTER 2025-06-15 00:15 | Day surgery (SDC) | payer MEDICARE | END 2025-06-15 23:00 | disposition home or self-care (01) | LOC: HBO 00:15 | DX: M86.671 Other chronic osteomyelitis, right ankle and foot (principal); I73.9 Peripheral vascular disease, unspecified | CPT/HCPCS: G0277 ==

== ENCOUNTER 2025-06-16 02:49 | Day surgery (SDC) | payer MEDICARE | END 2025-06-16 23:00 | disposition home or self-care (01) | LOC: HBO 02:49 | DX: M86.671 Other chronic osteomyelitis, right ankle and foot (principal); I73.9 Peripheral vascular disease, unspecified | CPT/HCPCS: G0277 ==

== ENCOUNTER 2025-06-17 02:37 | Day surgery (SDC) | payer MEDICARE | END 2025-06-17 23:00 | disposition home or self-care (01) | LOC: HBO 02:37 | DX: M86.671 Other chronic osteomyelitis, right ankle and foot (principal); I73.9 Peripheral vascular disease, unspecified | CPT/HCPCS: G0277 ==

== ENCOUNTER 2025-06-20 03:57 | Day surgery (SDC) | payer MEDICARE | END 2025-06-20 23:26 | disposition home or self-care (01) | LOC: HBO 03:57 → EDSTATUS 08:17 → HBO 14:35 | DX: L89.623 Pressure ulcer of left heel, stage 3 (principal); S91.301D Unspecified open wound, right foot, subsequent encounter; M86.671 Other chronic osteomyelitis, right ankle and foot; I73.9 Peripheral vascular disease, unspecified; X58.XXXD Exposure to other specified factors, subsequent encounter; Z79.82 Long term (current) use of aspirin; Z79.890 Hormone replacement therapy; Z79.899 Other long term (current) drug therapy; Z88.0 Allergy status to penicillin; Z88.6 Allergy status to analgesic agent; Z88.8 Allergy status to other drugs, medicaments and biological substances | CPT/HCPCS: G0277 ==

== ENCOUNTER 2025-06-23 00:14 | Day surgery (SDC) | payer MEDICARE | END 2025-06-23 23:00 | disposition home or self-care (01) | LOC: HBO 00:14 | DX: M86.671 Other chronic osteomyelitis, right ankle and foot (principal); L89.623 Pressure ulcer of left heel, stage 3; S91.301A Unspecified open wound, right foot, initial encounter; I73.9 Peripheral vascular disease, unspecified | CPT/HCPCS: G0277 ==

== ENCOUNTER 2025-06-24 00:02 | Day surgery (SDC) | payer MEDICARE | END 2025-06-24 23:00 | disposition home or self-care (01) | LOC: HBO 00:02 | DX: L89.623 Pressure ulcer of left heel, stage 3 (principal); S91.301D Unspecified open wound, right foot, subsequent encounter; M86.671 Other chronic osteomyelitis, right ankle and foot; I73.9 Peripheral vascular disease, unspecified | CPT/HCPCS: G0277 ==

== ENCOUNTER 2025-06-24 00:16 | Day surgery (SDC) | payer MEDICARE | END 2025-06-24 23:00 | disposition home or self-care (01) | LOC: WOUND 00:16 | DX: L89.623 Pressure ulcer of left heel, stage 3 (principal); S91.301D Unspecified open wound, right foot, subsequent encounter; X58.XXXD Exposure to other specified factors, subsequent encounter; G62.9 Polyneuropathy, unspecified; E03.9 Hypothyroidism, unspecified; I73.9 Peripheral vascular disease, unspecified; M86.671 Other chronic osteomyelitis, right ankle and foot | CPT/HCPCS: A6214; G0463 ==

== ENCOUNTER 2025-06-27 00:58 | Day surgery (SDC) | payer MEDICARE | END 2025-06-27 23:00 | disposition home or self-care (01) | LOC: HBO 00:58 | DX: M86.671 Other chronic osteomyelitis, right ankle and foot (principal); I73.9 Peripheral vascular disease, unspecified | CPT/HCPCS: G0277 ==

== ENCOUNTER 2025-06-28 01:18 | Day surgery (SDC) | payer MEDICARE ==
[2025-07-15] MEDS ORDERED: CIPR500 PO (16:43)
== END 2025-06-28 22:54 | disposition home or self-care (01) ==
LOC: HBO 01:18
DX: M86.671 Other chronic osteomyelitis, right ankle and foot (principal); I73.9 Peripheral vascular disease, unspecified
CPT/HCPCS: 36415; 85651; 86140; G0277

== ENCOUNTER 2025-06-29 08:00 | Day surgery (SDC) | payer MEDICARE | END 2025-06-29 23:00 | disposition home or self-care (01) | LOC: HBO 08:00 | DX: M86.671 Other chronic osteomyelitis, right ankle and foot (principal); L89.623 Pressure ulcer of left heel, stage 3; S91.301A Unspecified open wound, right foot, initial encounter; I73.9 Peripheral vascular disease, unspecified | CPT/HCPCS: G0277 ==

== ENCOUNTER 2025-06-30 00:56 | Day surgery (SDC) | payer MEDICARE | END 2025-06-30 23:00 | disposition home or self-care (01) | LOC: WOUND 00:56 | DX: M86.671 Other chronic osteomyelitis, right ankle and foot (principal); I73.9 Peripheral vascular disease, unspecified | CPT/HCPCS: G0277 ==

== ENCOUNTER 2025-07-04 01:23 | Day surgery (SDC) | payer MEDICARE | END 2025-07-04 23:00 | disposition home or self-care (01) | LOC: WOUND 01:23 | DX: L89.623 Pressure ulcer of left heel, stage 3 (principal); M86.671 Other chronic osteomyelitis, right ankle and foot; I73.9 Peripheral vascular disease, unspecified; G62.9 Polyneuropathy, unspecified; E03.9 Hypothyroidism, unspecified | CPT/HCPCS: A6214; G0463 ==

== ENCOUNTER 2025-07-05 00:43 | Day surgery (SDC) | payer MEDICARE | END 2025-07-05 23:00 | disposition home or self-care (01) | LOC: HBO 00:43 | DX: M86.671 Other chronic osteomyelitis, right ankle and foot (principal); I73.9 Peripheral vascular disease, unspecified | CPT/HCPCS: G0277 ==

== ENCOUNTER 2025-07-06 01:33 | Day surgery (SDC) | payer MEDICARE | END 2025-07-06 23:00 | disposition home or self-care (01) | LOC: HBO 01:33 | DX: M86.671 Other chronic osteomyelitis, right ankle and foot (principal); L89.623 Pressure ulcer of left heel, stage 3; S91.301A Unspecified open wound, right foot, initial encounter; I73.9 Peripheral vascular disease, unspecified; X58.XXXA Exposure to other specified factors, initial encounter | CPT/HCPCS: G0277 ==

== ENCOUNTER 2025-07-07 01:43 | Day surgery (SDC) | payer MEDICARE | END 2025-07-07 23:00 | disposition home or self-care (01) | LOC: HBO 01:43 | DX: M86.671 Other chronic osteomyelitis, right ankle and foot (principal); I73.9 Peripheral vascular disease, unspecified | CPT/HCPCS: G0277 ==

== ENCOUNTER 2025-07-11 00:16 | Day surgery (SDC) | payer MEDICARE | END 2025-07-11 23:27 | disposition home or self-care (01) | LOC: HBO 00:16 | DX: M86.671 Other chronic osteomyelitis, right ankle and foot (principal); I73.9 Peripheral vascular disease, unspecified | CPT/HCPCS: G0277 ==

== ENCOUNTER 2025-07-12 00:33 | Day surgery (SDC) | payer MEDICARE | END 2025-07-12 22:54 | disposition home or self-care (01) | LOC: HBO 00:33 | DX: L89.623 Pressure ulcer of left heel, stage 3 (principal); S91.301D Unspecified open wound, right foot, subsequent encounter; M86.671 Other chronic osteomyelitis, right ankle and foot; I73.9 Peripheral vascular disease, unspecified | CPT/HCPCS: G0277 ==

== ENCOUNTER 2025-07-13 00:08 | Day surgery (SDC) | payer MEDICARE | END 2025-07-13 23:00 | disposition home or self-care (01) | LOC: HBO 00:08 | DX: M86.671 Other chronic osteomyelitis, right ankle and foot (principal); I73.9 Peripheral vascular disease, unspecified | CPT/HCPCS: G0277 ==

== ENCOUNTER 2025-07-14 00:15 | Day surgery (SDC) | payer MEDICARE ==
[2025-07-15] MEDS ORDERED: CIPR500 PO (16:43)
== END 2025-07-14 23:00 | disposition home or self-care (01) ==
LOC: HBO 00:15
DX: M86.671 Other chronic osteomyelitis, right ankle and foot (principal); I73.9 Peripheral vascular disease, unspecified
CPT/HCPCS: G0277

== ENCOUNTER 2025-07-15 12:52 | Emergency (ER) | payer MEDICARE | END 2025-07-15 17:16 | disposition home or self-care (01) | LOC: ER 12:52 | DX: R53.1 Weakness (principal); D72.829 Elevated white blood cell count, unspecified; N39.0 Urinary tract infection, site not specified; K21.9 Gastro-esophageal reflux disease without esophagitis; M19.90 Unspecified osteoarthritis, unspecified site; Z79.82 Long term (current) use of aspirin; Z79.899 Other long term (current) drug therapy; Z88.0 Allergy status to penicillin; Z88.5 Allergy status to narcotic agent; Z88.8 Allergy status to other drugs, medicaments and biological substances ==

== ENCOUNTER 2025-08-01 07:17 | Day surgery (SDC) | payer MEDICARE ==
[~2025-08-01 07:17] MED LIST changes: +CEPH500 PO; +CIPR500 PO
== END 2025-08-01 23:36 | disposition home or self-care (01) ==
LOC: WOUND 07:17
DX: L89.623 Pressure ulcer of left heel, stage 3 (principal); I73.9 Peripheral vascular disease, unspecified; M86.671 Other chronic osteomyelitis, right ankle and foot; S91.301D Unspecified open wound, right foot, subsequent encounter
CPT/HCPCS: 36415; 80053; 85025; 85651; 86140; A6214; G0463

== ENCOUNTER 2025-08-04 02:05 | Day surgery (SDC) | payer MEDICARE | END 2025-08-04 23:00 | disposition home or self-care (01) | LOC: HBO 02:05 | DX: M86.671 Other chronic osteomyelitis, right ankle and foot (principal); L89.623 Pressure ulcer of left heel, stage 3; S91.301A Unspecified open wound, right foot, initial encounter; I73.9 Peripheral vascular disease, unspecified; W19.XXXA Unspecified fall, initial encounter | CPT/HCPCS: G0277 ==

== ENCOUNTER 2025-08-05 03:04 | Day surgery (SDC) | payer MEDICARE | END 2025-08-05 23:00 | disposition home or self-care (01) | LOC: HBO 03:04 | DX: M86.671 Other chronic osteomyelitis, right ankle and foot (principal); I73.9 Peripheral vascular disease, unspecified | CPT/HCPCS: G0277 ==

== ENCOUNTER 2025-08-08 02:36 | Day surgery (SDC) | payer MEDICARE | END 2025-08-08 23:00 | disposition home or self-care (01) | LOC: HBO 02:36 | DX: M86.671 Other chronic osteomyelitis, right ankle and foot (principal); I73.9 Peripheral vascular disease, unspecified | CPT/HCPCS: G0277 ==

== ENCOUNTER 2025-08-10 00:17 | Day surgery (SDC) | payer MEDICARE | END 2025-08-10 23:00 | disposition home or self-care (01) | LOC: HBO 00:17 | DX: M86.671 Other chronic osteomyelitis, right ankle and foot (principal); I73.9 Peripheral vascular disease, unspecified | CPT/HCPCS: G0277 ==

== ENCOUNTER 2025-08-11 04:12 | Day surgery (SDC) | payer MEDICARE | END 2025-08-11 23:00 | disposition home or self-care (01) | LOC: HBO 04:12 | DX: M86.671 Other chronic osteomyelitis, right ankle and foot (principal); I73.9 Peripheral vascular disease, unspecified | CPT/HCPCS: G0277 ==

== ENCOUNTER 2025-08-12 06:40 | Day surgery (SDC) | payer MEDICARE | END 2025-08-12 23:00 | disposition home or self-care (01) | LOC: WOUND 06:40 | DX: L89.623 Pressure ulcer of left heel, stage 3 (principal); E03.9 Hypothyroidism, unspecified; I73.9 Peripheral vascular disease, unspecified; G62.9 Polyneuropathy, unspecified; M86.671 Other chronic osteomyelitis, right ankle and foot | CPT/HCPCS: A6214; A9270 ==

== ENCOUNTER 2025-08-12 06:42 | Day surgery (SDC) | payer MEDICARE | END 2025-08-12 23:00 | disposition home or self-care (01) | LOC: HBO 06:42 | DX: M86.671 Other chronic osteomyelitis, right ankle and foot (principal); I73.9 Peripheral vascular disease, unspecified | CPT/HCPCS: G0277 ==

== ENCOUNTER 2025-08-15 00:14 | Day surgery (SDC) | payer MEDICARE | END 2025-08-15 23:00 | disposition home or self-care (01) | LOC: HBO | DX: M86.671 Other chronic osteomyelitis, right ankle and foot (principal); I73.9 Peripheral vascular disease, unspecified | CPT/HCPCS: G0277 ==

== ENCOUNTER 2025-08-16 00:28 | Day surgery (SDC) | payer MEDICARE | END 2025-08-16 23:48 | disposition home or self-care (01) | LOC: HBO 00:28 | DX: L89.623 Pressure ulcer of left heel, stage 3 (principal); S91.301D Unspecified open wound, right foot, subsequent encounter; M86.671 Other chronic osteomyelitis, right ankle and foot; I73.9 Peripheral vascular disease, unspecified | CPT/HCPCS: G0277 ==

== ENCOUNTER 2025-08-17 01:03 | Day surgery (SDC) | payer MEDICARE | END 2025-08-17 21:00 | disposition home or self-care (01) | LOC: HBO 01:03 | DX: M86.671 Other chronic osteomyelitis, right ankle and foot (principal); L89.623 Pressure ulcer of left heel, stage 3; S91.301A Unspecified open wound, right foot, initial encounter; I73.9 Peripheral vascular disease, unspecified; X58.XXXA Exposure to other specified factors, initial encounter | CPT/HCPCS: G0277 ==

== ENCOUNTER → 2025-08-24 | Outpatient (CLI) | payer MEDICARE ==
[2025-08-24 10:30] LABS: Source, Urine Clean Catch
[2025-08-24 10:35] LABS: Bilirubin, Urine Neg (Neg); Color, Urine Yellow (P-Yellow); Glucose Qualitative, Urine Neg (Neg); Ketones, Urine Neg (Neg); Leukocyte Esterase, Urine 3+ (Neg); Protein, Urine 1+ (Neg); Specific Gravity, Urine 1.010 (1.003-1.022); Urobilinogen, Urine NORM (Normal)
[2025-08-24 10:51] LABS: White Blood Cells, Urine 50-100 /hpf (0-5)
== END | disposition home or self-care (01) ==
LOC: LAB 09:35 → LAB SHORT 09:35
PROVIDERS: Physician Assistant
DX: N39.0 Urinary tract infection, site not specified (principal)
CPT/HCPCS: 81001; 87077; 87086; 87186